=== PATIENT | male | born 1995 | race Hispanic/Latino ===

== ENCOUNTER 2023-07-29 09:05 | Observation (INO) | payer OTHER ==
[~2023-07-29] VITALS: Ht 172.7 cm; Wt 79.1 kg
[2023-07-29] MEDS: TETANUS/DIPHTHERIA TOXOID [ADULT] 0.5 ML VIAL IM ONE (09:34)
[2023-07-29] MEDS: ONDANSETRON 4MG INJ ONE (10:47)
[2023-07-29] MEDS: CEFAZOLIN SODIUM 1 GM VIAL ONE (10:47)
[2023-07-29] MEDS: KETOROLAC 30MG VIAL (30MG/ML) IM ONE (10:48)
[2023-07-29] MEDS: MORPHINE 2 MG SYG IM ONE (10:48)
[2023-07-29] MEDS: CEFAZOLIN SODIUM 1 GM VIAL IVPB SCH (10:48)
[2023-07-29] MEDS: ONDANSETRON 4MG INJ IVP ONE (10:48)
[2023-07-29] MEDS: LIDOCAINE HCL 1% 20 ML VIAL ONE (10:49)
[2023-07-29 11:10] LABS: BASOPHILS # (AUTO) 0.09 K/uL (0.00-0.20); BASOPHILS % (AUTO) 0.8 % (0.0-5.0); EOSINOPHILS # (AUTO) 0.58 K/uL (0.00-0.70); EOSINOPHILS % (AUTO) 5.3 % (0.0-8.0); HEMATOCRIT 41.8 % (42-54); IMMATURE GRANULOCYTE ABSOLUTE 0.04 K/uL (0-1); LYMPHOCYTES # (AUTO) 2.3 K/uL (1.0-4.8); LYMPHOCYTES % (AUTO) 20.5 % (21.0-51.0); MEAN CORPUSCULAR HEMOGLOBIN 27.6 pg (27.0-33.0); MEAN CORPUSCULAR HGB CONC 32.8 g/dL (32.0-36.0); MEAN CORPUSCULAR VOLUME 84.3 fL (79-99); MONOCYTES # (AUTO) 0.8 K/uL (0.1-1.0); MONOCYTES % (AUTO) 7.6 % (3.0-13.0); NEUTROPHILS # (AUTO) 7.2 K/uL (1.8-7.7); NEUTROPHILS % (AUTO) 65.4 % (40.0-77.0); PLATELET COUNT (AUTO) 378 K/uL (130-400); RED BLOOD CELL COUNT(AUTO) 4.96 MIL/uL (4.50-6.20); RED CELL DISTRIBUTION WIDTH 13.1 % (11.0-15.5)
[2023-07-29 11:17] LABS: CREATININE 0.9 mg/dL (0.5-1.3)
[2023-07-29 11:21] LABS: INR <= 0.93 (0.85-1.15); PROTHROMBIN TIME 10.9 SEC (9.6-11.6)
[2023-07-29 11:22] LABS: ALBUMIN 3.8 g/dL (3.5-5.0); BILIRUBIN,TOTAL 0.6 mg/dL (0.2-1.0); PARTIAL THROMBOPLASTIN TIME 30.1 SEC (26.3-35.5); TOTAL PROTEIN, SERUM 7.5 g/dL (6.0-8.3)
[2023-07-29] MEDS ORDERED: ACETAMINOPHEN 325 MG TAB PO PRN (11:30)
[2023-07-29] MEDS ORDERED: ONDANSETRON 4MG INJ IVP PRN (11:30)
[2023-07-29] MEDS ORDERED: CEFAZOLIN SODIUM 1 GM VIAL IVPB ONE (12:00)
[2023-07-29] MEDS: ZOSYN 3.375GM +NS 50ML IV SCH (13:08)
[2023-07-29] MEDS: ACETAMINOPHEN WITH CODEINE 1 TAB TAB PO PRN (13:14)
[2023-07-29 17:22] VITALS: O2SAT 98
[2023-07-29 18:00] VITALS: BP 121/63; PULSE 64; RESP 16
[2023-07-29 20:00] VITALS: BP 118/62; PULSE 60; RESP 18
[2023-07-30] VITALS: BP 113/58; PULSE 58; RESP 18
[2023-07-30 04:00] VITALS: BP 101/67; PULSE 56; RESP 18
[2023-07-30 08:00] VITALS: BP 115/64; PULSE 55; RESP 17
[2023-07-30 11:51] VITALS: BP 116/61; PULSE 54; RESP 18
[2023-07-30] MEDS: NEOMY SULF/BACITRA/POLYMYXIN B 1 EACH PACKET TP ONE (12:25)
== END 2023-07-30 12:15 | disposition home or self-care (01) ==
LOC: EDH 09:05 → EDHIP 09:06 → 4BH 17:26
PROVIDERS: ADMIT Surgery; ATTEND Surgery
DX: S61.411A Laceration without foreign body of right hand, initial encounter (principal); W25.XXXA Contact with sharp glass, initial encounter; Y93.89 Activity, other specified; Y92.89 Other specified places as the place of occurrence of the external cause; Y99.8 Other external cause status
CPT/HCPCS: 96372; 96365; 96366 ×2; 96375; 96367; 99284; 80053; 85025; 85610; 85730; 36415; 90714; 73130; 90471; 12002; G0378 ×24; J0690; J2270; J2405; J1885; J2543 ×3